=== PATIENT | male | born 1985 | race Caucasian/White ===

== ENCOUNTER 2021-07-23 14:31 | Inpatient (IN) | payer MEDICAID, OTHER ==
[~2021-07-23] VITALS: Ht 180.3 cm; Wt 55.5 kg
[2021-07-23] MEDS ORDERED: HALOPERIDOL 5 MG TABLET PO ONE (15:15)
[2021-07-23 15:45] LABS: BASOPHILS % (AUTO) 0.6 % (0.0-2.0); HEMATOCRIT 32.2 % (41-53); HEMOGLOBIN 10.5 g/dL (13.5-17.5); LYMPHOCYTES # (AUTO) 1.3 K/uL (1.0-4.8); LYMPHOCYTES % (AUTO) 16.7 % (22.0-44.0); MEAN CORPUSCULAR HEMOGLOBIN 27.6 pg (26.0-34.0); MEAN CORPUSCULAR HGB CONC 32.6 G/dL (31.0-37.0); MEAN CORPUSCULAR VOLUME 85 fL (80-100); MONOCYTES # (AUTO) 0.8 K/uL (0.1-1.0); MONOCYTES % (AUTO) 9.9 % (2.0-9.0); NEUTROPHILS # (AUTO) 4.6 K/uL (1.8-7.7); NEUTROPHILS % (AUTO) 56.5 % (40.0-70.0); PLATELET COUNT (AUTO) 326 K/uL (150-450); RED CELL DISTRIBUTION WIDTH 15.1 % (11.5-14.5)
[2021-07-23 15:49] LABS: ANION GAP 9 mmol/L (8-16); CALCIUM, TOTAL 8.5 mg/dL (8.8-10.5); CARBON DIOXIDE 25 mmol/L (22-29); CHLORIDE 105 mmol/L (98-107); CREATININE 0.94 mg/dL (0.60-1.30); GLOMERULAR FILTR. RATE CALC > 60 mL/min (>60); GLUCOSE,RANDOM 116 mg/dL (70-110); POTASSIUM 3.5 mmol/L (3.5-5.1); SODIUM SERUM 139 mmol/L (136-145); UREA NITROGEN, BLOOD 16 mg/dL (7-18)
[2021-07-23 15:51] LABS: EOSINOPHILS % (AUTO) 16.3 % (1.0-6.0)
[2021-07-23 15:55] LABS: ALANINE AMINOTRANSFERASE 16 U/L (12-78); ALKALINE PHOSPHATASE 96 U/L (46-116); ASPARTATE AMINOTRANSFERASE 22 U/L (15-37); BILIRUBIN,TOTAL 0.4 mg/dL (0.1-1.0); TOTAL PROTEIN, SERUM 8.1 g/dL (6.4-8.2)
[2021-07-23 17:11] LABS: COVID AG,FIA SOURCE NASAL SWAB
[2021-07-23] MEDS ORDERED: GuaiFENesin/D-METHORPHAN [SUGAR-FREE] 200-20MG/10 ML SYRUP UDCUP PO PRN (17:30)
[2021-07-23] MEDS ORDERED: OLANZapine 5 MG RAPDIS TABLET PO PRN (17:30)
[2021-07-23] MEDS ORDERED: TUBERCULIN, PURIFIED PROTEIN DERIVATIVE 5 TU/0.1 ML SYRINGE ID ONE (17:30)
[2021-07-23] MEDS ORDERED: HydrOXYzine PAMOATE 50 MG CAPSULE PO PRN (17:30)
[2021-07-23] MEDS ORDERED: LORazepam 2 MG TABLET PO PRN (17:30)
[2021-07-23] MEDS ORDERED: PROMETHAZINE HCL 25 MG TABLET PO PRN (17:30)
[2021-07-23] MEDS ORDERED: ZOLPIDEM TARTRATE 10 MG TABLET PO PRN (17:30)
[2021-07-23] MEDS ORDERED: PERMETHRIN 5% 60 GM CREAM TP ONE ×2 (17:45→21:45)
[2021-07-23] MEDS ORDERED: PERMETHRIN 1% 60 ML LOTION TP ONE (17:45)
[2021-07-23] MEDS: THIAMINE 100 MG TABLET PO SCH ×2 (20:59→21:55)
[2021-07-23] MEDS: MELATONIN 5 MG TABLET PO SCH ×2 (21:00→21:50)
[2021-07-23] MEDS: OLANZapine 5 MG RAPDIS TABLET PO SCH ×2 (21:00→22:30)
[2021-07-24 08:55] LABS: HEMOGLOBIN A1C 5.2 % (3.8-5.6)
[2021-07-24] MEDS ORDERED: PALIPERIDONE PALMITATE 234 MG/1.5 ML SYRINGE IM ONE (09:00)
[2021-07-24] MEDS: NALTREXONE HCL 50 MG TABLET PO SCH (09:11)
[2021-07-24] MEDS: FOLIC ACID 1 MG TABLET PO SCH (09:11)
[2021-07-24] MEDS: OMEGA-3/DHA/EPA/FISH OIL 1,000 MG CAPSULE PO SCH (09:11)
[2021-07-24] MEDS: MULTIVITAMINS WITH MINERALS, THERAPEUTIC TABLET PO SCH (09:11)
[2021-07-24] MEDS: THIAMINE 100 MG TABLET PO SCH ×2 (09:12→16:28)
[2021-07-24 09:17] LABS: CHOL/HDL RATIO 2.5 (4.2-7.3); FREE T4 (FREE THYROXINE) 1.05 ng/dL (0.76-1.46); THYROID STIMULATING HORMONE 1.34 uIU/mL (0.36-3.74)
[2021-07-24 09:42] VITALS: BP 118/54
[2021-07-24] MEDS: MELATONIN 5 MG TABLET PO SCH (21:29)
[2021-07-24] MEDS ORDERED: PENICILLIN G BENZATHINE LA 2,400,000 UNITS/4 ML SYRINGE IM ONE (22:45)
[2021-07-25 06:06] LABS: RPR QUANT. (TITER) Non Reactive (NonRea<1:1)
[2021-07-25 09:14] VITALS: BP 107/64
[2021-07-25] MEDS: FOLIC ACID 1 MG TABLET PO SCH (11:08)
[2021-07-25] MEDS: MULTIVITAMINS WITH MINERALS, THERAPEUTIC TABLET PO SCH (11:08)
[2021-07-25] MEDS: THIAMINE 100 MG TABLET PO SCH ×2 (11:08→16:50)
[2021-07-25] MEDS: OMEGA-3/DHA/EPA/FISH OIL 1,000 MG CAPSULE PO SCH (11:08)
[2021-07-25] MEDS: NALTREXONE HCL 50 MG TABLET PO SCH (11:08)
[2021-07-25 17:01] VITALS: BP 118/69
[2021-07-25] MEDS: MELATONIN 5 MG TABLET PO SCH (20:33)
[2021-07-26] MEDS ORDERED: FLUoxetine HCL 20 MG CAPSULE PO SCH (09:00)
[2021-07-26 09:14] VITALS: BP 106/55
[2021-07-26] MEDS: MULTIVITAMINS WITH MINERALS, THERAPEUTIC TABLET PO SCH (10:13)
[2021-07-26] MEDS: FOLIC ACID 1 MG TABLET PO SCH (10:13)
[2021-07-26] MEDS: NALTREXONE HCL 50 MG TABLET PO SCH (10:14)
[2021-07-26] MEDS: THIAMINE 100 MG TABLET PO SCH ×2 (10:14→16:56)
[2021-07-26] MEDS: OMEGA-3/DHA/EPA/FISH OIL 1,000 MG CAPSULE PO SCH (10:14)
[2021-07-26] MEDS: OLANZapine 5 MG RAPDIS TABLET PO PRN (16:56)
[2021-07-26] MEDS: MELATONIN 5 MG TABLET PO SCH (20:49)
[2021-07-27 08:46] VITALS: BP 121/74
[2021-07-27] MEDS ORDERED: PERMETHRIN 5% 60 GM CREAM TP ONE (09:15)
[2021-07-27] MEDS: THIAMINE 100 MG TABLET PO SCH ×2 (10:13→17:36)
[2021-07-27] MEDS: FLUoxetine HCL 20 MG CAPSULE PO SCH (10:14)
[2021-07-27] MEDS: OMEGA-3/DHA/EPA/FISH OIL 1,000 MG CAPSULE PO SCH (10:14)
[2021-07-27] MEDS: FOLIC ACID 1 MG TABLET PO SCH (10:14)
[2021-07-27] MEDS: MULTIVITAMINS WITH MINERALS, THERAPEUTIC TABLET PO SCH (10:14)
[2021-07-27] MEDS: NALTREXONE HCL 50 MG TABLET PO SCH (10:14)
[2021-07-27 17:07] VITALS: BP 125/76
[2021-07-27] MEDS: OLANZapine 5 MG RAPDIS TABLET PO PRN (17:36)
[2021-07-27] MEDS: MELATONIN 5 MG TABLET PO SCH (20:34)
[2021-07-28] MEDS: FLUoxetine HCL 20 MG CAPSULE PO SCH (08:39)
[2021-07-28] MEDS: NALTREXONE HCL 50 MG TABLET PO SCH (08:39)
[2021-07-28] MEDS: THIAMINE 100 MG TABLET PO SCH ×2 (08:39→17:15)
[2021-07-28] MEDS: MULTIVITAMINS WITH MINERALS, THERAPEUTIC TABLET PO SCH (08:39)
[2021-07-28] MEDS: FOLIC ACID 1 MG TABLET PO SCH (08:39)
[2021-07-28 09:00] VITALS: BP 99/57
[2021-07-28] MEDS ORDERED: PALIPERIDONE PALMITATE 156 MG/ML SYRINGE IM ONE (09:00)
[2021-07-28] MEDS: OMEGA-3/DHA/EPA/FISH OIL 1,000 MG CAPSULE PO SCH (09:07)
[2021-07-28] MEDS ORDERED: PERMETHRIN 1% 60 ML LOTION TP ONE (16:00)
[2021-07-28 16:17] VITALS: BP 112/60
[2021-07-28] MEDS: MELATONIN 5 MG TABLET PO SCH (20:49)
[2021-07-29] MEDS: FLUoxetine HCL 20 MG CAPSULE PO SCH (09:30)
[2021-07-29] MEDS: MULTIVITAMINS WITH MINERALS, THERAPEUTIC TABLET PO SCH (09:30)
[2021-07-29] MEDS: NALTREXONE HCL 50 MG TABLET PO SCH (09:31)
[2021-07-29] MEDS: FOLIC ACID 1 MG TABLET PO SCH (09:31)
[2021-07-29] MEDS: THIAMINE 100 MG TABLET PO SCH ×2 (09:31→16:04)
[2021-07-29] MEDS: OMEGA-3/DHA/EPA/FISH OIL 1,000 MG CAPSULE PO SCH (09:32)
[2021-07-29 14:06] LABS: COVID AG,FIA SOURCE NASOPHARYNGEAL
[2021-07-29] MEDS: MELATONIN 5 MG TABLET PO SCH (20:24)
[2021-07-30] MEDS: NALTREXONE HCL 50 MG TABLET PO SCH (09:19)
[2021-07-30] MEDS: FLUoxetine HCL 20 MG CAPSULE PO SCH (09:19)
[2021-07-30] MEDS: FOLIC ACID 1 MG TABLET PO SCH (09:19)
[2021-07-30] MEDS: THIAMINE 100 MG TABLET PO SCH ×2 (09:19→16:04)
[2021-07-30] MEDS: OMEGA-3/DHA/EPA/FISH OIL 1,000 MG CAPSULE PO SCH (09:19)
[2021-07-30] MEDS: MULTIVITAMINS WITH MINERALS, THERAPEUTIC TABLET PO SCH (09:19)
[2021-07-30 10:25] VITALS: BP 122/71
[2021-07-30] MEDS: MELATONIN 5 MG TABLET PO SCH (20:39)
[2021-07-31] MEDS: THIAMINE 100 MG TABLET PO SCH ×2 (08:46→16:01)
[2021-07-31] MEDS: FOLIC ACID 1 MG TABLET PO SCH (08:46)
[2021-07-31] MEDS: OMEGA-3/DHA/EPA/FISH OIL 1,000 MG CAPSULE PO SCH (08:46)
[2021-07-31] MEDS: MULTIVITAMINS WITH MINERALS, THERAPEUTIC TABLET PO SCH (08:46)
[2021-07-31] MEDS: FLUoxetine HCL 20 MG CAPSULE PO SCH (08:47)
[2021-07-31] MEDS: NALTREXONE HCL 50 MG TABLET PO SCH (08:47)
[2021-07-31 16:50] VITALS: BP 134/82
[2021-07-31] MEDS: MELATONIN 5 MG TABLET PO SCH (20:12)
[2021-08-01] MEDS: NALTREXONE HCL 50 MG TABLET PO SCH (08:38)
[2021-08-01] MEDS: FOLIC ACID 1 MG TABLET PO SCH (08:38)
[2021-08-01] MEDS: THIAMINE 100 MG TABLET PO SCH ×2 (08:38→16:16)
[2021-08-01] MEDS: FLUoxetine HCL 20 MG CAPSULE PO SCH (08:38)
[2021-08-01] MEDS: OMEGA-3/DHA/EPA/FISH OIL 1,000 MG CAPSULE PO SCH (08:38)
[2021-08-01] MEDS: MULTIVITAMINS WITH MINERALS, THERAPEUTIC TABLET PO SCH (08:38)
[2021-08-01 09:09] VITALS: BP 151/86
[2021-08-01] MEDS ORDERED: GABAPENTIN 300 MG CAPSULE PO PRN (16:00)
[2021-08-01] MEDS: OLANZapine 5 MG RAPDIS TABLET PO SCH (20:28)
[2021-08-01] MEDS: MELATONIN 5 MG TABLET PO SCH (20:28)
[2021-08-02] MEDS: NALTREXONE HCL 50 MG TABLET PO SCH (08:19)
[2021-08-02] MEDS: MULTIVITAMINS WITH MINERALS, THERAPEUTIC TABLET PO SCH (08:19)
[2021-08-02] MEDS: FLUoxetine HCL 20 MG CAPSULE PO SCH (08:21)
[2021-08-02] MEDS: FOLIC ACID 1 MG TABLET PO SCH (08:21)
[2021-08-02] MEDS: OMEGA-3/DHA/EPA/FISH OIL 1,000 MG CAPSULE PO SCH (08:21)
[2021-08-02] MEDS: THIAMINE 100 MG TABLET PO SCH (08:21)
[2021-08-02 09:07] VITALS: BP 99/60
[2021-08-02] MEDS: OLANZapine 5 MG RAPDIS TABLET PO SCH (20:26)
[2021-08-02] MEDS: MELATONIN 5 MG TABLET PO SCH (20:26)
[2021-08-03] MEDS: MULTIVITAMINS WITH MINERALS, THERAPEUTIC TABLET PO SCH (09:10)
[2021-08-03] MEDS: NALTREXONE HCL 50 MG TABLET PO SCH (09:11)
[2021-08-03] MEDS: FLUoxetine HCL 20 MG CAPSULE PO SCH (09:11)
[2021-08-03] MEDS: OMEGA-3/DHA/EPA/FISH OIL 1,000 MG CAPSULE PO SCH (09:11)
[2021-08-03 16:00] VITALS: BP 91/50
[2021-08-03] MEDS: MELATONIN 5 MG TABLET PO SCH (20:53)
[2021-08-03] MEDS: OLANZapine 5 MG RAPDIS TABLET PO SCH (20:54)
[2021-08-04 08:59] VITALS: BP 111/67
[2021-08-04] MEDS: NALTREXONE HCL 50 MG TABLET PO SCH (10:46)
[2021-08-04] MEDS: OMEGA-3/DHA/EPA/FISH OIL 1,000 MG CAPSULE PO SCH (10:46)
[2021-08-04] MEDS: FLUoxetine HCL 20 MG CAPSULE PO SCH (10:46)
[2021-08-04] MEDS: MULTIVITAMINS WITH MINERALS, THERAPEUTIC TABLET PO SCH (10:46)
[2021-08-04] MEDS: OLANZapine 5 MG RAPDIS TABLET PO SCH (20:15)
[2021-08-04] MEDS: MELATONIN 5 MG TABLET PO SCH (20:15)
[2021-08-05] MEDS: MULTIVITAMINS WITH MINERALS, THERAPEUTIC TABLET PO SCH (08:23)
[2021-08-05] MEDS: NALTREXONE HCL 50 MG TABLET PO SCH (08:23)
[2021-08-05] MEDS: FLUoxetine HCL 20 MG CAPSULE PO SCH (08:23)
[2021-08-05] MEDS: OMEGA-3/DHA/EPA/FISH OIL 1,000 MG CAPSULE PO SCH (08:24)
[2021-08-05 12:39] LABS: COVID AG,FIA SOURCE NASOPHARYNGEAL
[2021-08-05] MEDS ORDERED: PERMETHRIN 5% 60 GM CREAM TP ONE (14:45)
[2021-08-05] MEDS: MELATONIN 5 MG TABLET PO SCH (20:42)
[2021-08-05] MEDS: OLANZapine 5 MG RAPDIS TABLET PO SCH (20:42)
[2021-08-06] MEDS: NALTREXONE HCL 50 MG TABLET PO SCH (08:22)
[2021-08-06] MEDS: MULTIVITAMINS WITH MINERALS, THERAPEUTIC TABLET PO SCH (08:22)
[2021-08-06] MEDS: FLUoxetine HCL 20 MG CAPSULE PO SCH (08:22)
[2021-08-06 08:40] VITALS: BP 100/52
[2021-08-06] MEDS: OMEGA-3/DHA/EPA/FISH OIL 1,000 MG CAPSULE PO SCH (08:48)
[2021-08-06 16:24] VITALS: BP 119/62
[2021-08-06] MEDS: OLANZapine 5 MG RAPDIS TABLET PO SCH (21:07)
[2021-08-06] MEDS: MELATONIN 5 MG TABLET PO SCH (21:07)
[2021-08-07] MEDS: FLUoxetine HCL 20 MG CAPSULE PO SCH (08:26)
[2021-08-07] MEDS: MULTIVITAMINS WITH MINERALS, THERAPEUTIC TABLET PO SCH (08:26)
[2021-08-07] MEDS: NALTREXONE HCL 50 MG TABLET PO SCH (08:26)
[2021-08-07] MEDS: OMEGA-3/DHA/EPA/FISH OIL 1,000 MG CAPSULE PO SCH (08:27)
[2021-08-07 10:20] VITALS: BP 83/77
[2021-08-07] MEDS ORDERED: OMEG-108 PO (21:16)
[2021-08-07] MEDS ORDERED: NALT50TA PO (21:16)
[2021-08-07] MEDS ORDERED: MELA5TAB40 PO (21:16)
[2021-08-07] MEDS ORDERED: PROZ20 PO (21:16)
[2021-08-07] MEDS ORDERED: PALI117D IM (21:16)
== END 2021-08-07 15:02 | disposition home or self-care (01) | DRG 750 ==
LOC: EMS 14:36 → 3EI 17:16
PROVIDERS: ADMIT Psychiatry & Neurology Psychiatry; ATTEND Psychiatry & Neurology Psychiatry
DX: F25.0 Schizoaffective disorder, bipolar type (principal); B86 Scabies; F41.9 Anxiety disorder, unspecified; D64.9 Anemia, unspecified; Z20.822 Contact with and (suspected) exposure to COVID-19; Z59.00 Homelessness unspecified; Z55.9 Problems related to education and literacy, unspecified; Z63.9 Problem related to primary support group, unspecified; Z65.3 Problems related to other legal circumstances; Z87.891 Personal history of nicotine dependence; Z91.19 Patient's noncompliance with other medical treatment and regimen
CPT/HCPCS: 80053; 80061; 83036; 84439; 84443; 85025; 86592; 86593; 86780; 99285; G0480; J0561; Q9967